=== PATIENT | male | born 1995 | race Caucasian/White ===

== ENCOUNTER 2016-07-08 00:14 | Inpatient (IN) | payer BC ==
[2016-07-08] MEDS ORDERED: ONDANSETRON HCL INJ/PF 4 MG/2 ML SDV IV ONE ×2 (00:44→02:38)
[2016-07-08] MEDS ORDERED: NORMAL SALINE 1000 ML 1,000 ML IV ONE ×3 (00:44→04:10)
[2016-07-08] MEDS ORDERED: ONDANSETRON 4 MG TAB.RAPDIS ONE (01:58)
--- NOTE | 2016-07-08 02:12 | ER Document Report ---
ED General - General Chief Complaint: Nausea/Vomiting Stated Complaint: NAUSEA, VOMITING Notes: Patient is a 20-year-old male presents with complaint of vomiting, cough, low- grade fever. Temperature at home was 99. He is a type I diabetic. He's been guessing how much insulin to give himself surrounded of his glucometer. He denies any diarrhea. No abdominal pain. Some pain in his chest when he coughs. Some pain in his throat from vomiting. No blood in his emesis. No other complaints at this time. TRAVEL OUTSIDE OF THE [place] IN LAST 30 DAYS: No - Related Data Allergies/Adverse Reactions: No Known Allergies Allergy (Unverified 02/12/14 13:50) Past Medical History - Social History Smoking Status: Former Smoker Chew tobacco use (# tins/day): No Frequency of alcohol use: Rare Drug Abuse: None Family History: Reviewed & Not Pertinent Patient has suicidal ideation: No Patient has homicidal ideation: No Endocrine Medical History: Reports: Hx Diabetes Mellitus Type 1, Hx Hypothyroidism Renal/ Medical History: Denies: Hx Peritoneal Dialysis - Immunizations Hx Pneumococcal Vaccination: 05/15/11 Review of Systems - Review of Systems Notes: My Normal Review Basic REVIEW OF SYSTEMS: CONSTITUTIONAL : Denies fever, chills, or sweats. Denies recent illness. EENT: Denies eye, ear, throat, or mouth pain or symptoms. Denies nasal or sinus congestion. CARDIOVASCULAR: Denies chest pain. RESPIRATORY: Recurrent cough GASTROINTESTINAL: Denies abdominal pain. Recurrent vomiting GENITOURINARY: Denies difficulty urinating, painful urination, burning, frequency, or blood in urine. MUSCULOSKELETAL: Denies neck or back pain or joint pain or swelling. SKIN: Denies rash or skin lesions. NEUROLOGICAL: Denies altered mental status or loss of consciousness. Denies headache. Denies weakness or paralysis or loss of use of either side. Denies problems with gait or speech. Denies sensory or motor loss. ALL OTHER SYSTEMS REVIEWED AND NEGATIVE. Physical Exam - Vital signs Vitals: Temp Pulse Resp BP Pulse Ox 98.3 F 148 H 20 120/85 96 07/08/16 00:18 07/08/16 00:18 07/08/16 00:18 07/08/16 00:18 07/08/16 00:18 - Notes Notes: General Appearance: Well nourished, alert, cooperative, no acute distress, no obvious discomfort. Vitals: reviewed, See vital signs table. Head: no swelling or tenderness to the head Eyes: PERRL, EOMI, Conjuctiva clear Mouth: No decreasd moisture Throat: No tonsillar inflammation, No airway obstruction, No lymphadenopathy Neck: Supple, no neck tenderness, No thyromegaly Lungs: No wheezing, No rales, No rhonci, No accessory muscle use, good air exchange bilaterally. Kusmal type respiration Heart: Cardiac rate, Regular rythm, No murmur, no rub Abdomen: Normal BS, soft, No rigidity, No abdominal tenderness, No guarding, no rebound, no abdominal masses, no organomegaly Extremities: strength 5/5 in all extremities, good pulses in all extremities, no swelling or tenderness in the extremities, no edema. Skin: warm, dry, appropriate color, no rash Neuro: speech clear, oriented x 3, normal affect, responds appropriately to questions. Course - Vital Signs Vital signs: Temp Pulse Resp BP Pulse Ox 98.3 F 148 H 20 120/85 96 07/08/16 00:18 07/08/16 00:18 07/08/16 00:18 07/08/16 00:18 07/08/16 00:18 - Laboratory Result Diagrams: 07/08/16 01:50 07/08/16 01:50 Laboratory results interpreted by me: 07/08/16 07/08/16 07/08/16 01:50 01:50 01:50 WBC 17.3 H MCHC 31.6 L RDW 14.2 H Seg Neutrophils % 83.6 H Lymphocytes % 7.0 L Absolute Neutrophils 14.5 H Absolute Monocytes 1.6 H VBG pH VBG pCO2 VBG HCO3 Sodium 135.8 L Potassium 6.2 H* Chloride 96 L Carbon Dioxide 6 L* Anion Gap 34 H Glucose 496 H* POC Glucose Calcium 10.3 H Total Protein 8.9 H Albumin 5.3 H Urine Protein 100 H Urine Glucose (UA) >=500 H Urine Ketones 80 H Urine Blood SMALL H 07/08/16 07/08/16 01:55 03:16 WBC MCHC RDW Seg Neutrophils % Lymphocytes % Absolute Neutrophils Absolute Monocytes VBG pH 7.04 L* VBG pCO2 22.3 L VBG HCO3 5.9 L Sodium Potassium Chloride Carbon Dioxide Anion Gap Glucose POC Glucose 443 H* Calcium Total Protein Albumin Urine Protein Urine Glucose (UA) Urine Ketones Urine Blood - EKG Interpretation by Me Additional EKG results interpreted by me: 07/08/16 02:12 EKGs reviewed and interpreted by me. EKG shows sinus tachycardia with rate of [address] segment elevation or depression. Ischemic T-wave inversions. MI level, QRS duration, QTC intervals are within normal range. Old EKG for comparison is from 02/12/2014. - Transfer of Care Notes: 07/08/16 03:44 Patient is in DKA as expected. I did reevaluate the patient. He is receiving IV fluids. Insulin drips being high now. He is hyperkalemic and acidotic. I will give him 1 amp of bicarbonate to help with the hyperkalemia. I have called the hospitalist and am awaiting a response to get the patient admitted. 07/08/16 04:09 I did speak with the hospitalist who agrees to the patient. 07/08/16 04:09 Dictation of this chart was performed using voice recognition software; therefore, there may be some unintended grammatical errors. Discharge - Discharge Clinical Impression: DKA (diabetic ketoacidoses) Qualifiers: Diabetes mellitus type: type 1 Diabetes mellitus complication detail: without coma Qualified Code(s): E10.10 - Type 1 diabetes mellitus with ketoacidosis without coma Condition: Stable Disposition: ADMITTED INPATIENT Admitting Provider: Hospitalist Unit Admitted: [facility]
[2016-07-08 02:14] LABS: ABSOLUTE LYMPHOCYTES (AUTO) 1.2 10^3/uL (0.5-4.7); ABSOLUTE MONOCYTES (AUTO) 1.6 10^3/uL (0.1-1.4); ABSOLUTE NEUT (AUTO) 14.5 10^3/uL (1.7-8.2); BASOPHILS % (AUTO) 0.2 % (0-2); HEMATOCRIT 50.3 % (37.9-51.0); HEMOGLOBIN 15.9 g/dL (13.5-17.0); HGB HCT DIFFERENCE -2.6; MEAN CORPUSCULAR HEMOGLOBIN 29.3 pg (27.0-33.4); MEAN CORPUSCULAR HGB CONC 31.6 g/dL (32.0-36.0); MEAN CORPUSCULAR VOLUME 93 fl (80-97); MONOCYTES % (AUTO) 9.2 % (3-13); RED BLOOD COUNT 5.43 10^6/uL (4.35-5.55); RED CELL DISTRIBUTION WIDTH 14.2 % (11.5-14.0); SEGMENTED NEUTROPHILS % (AUTO) 83.6 % (42-78); WHITE BLOOD COUNT 17.3 10^3/uL (4.0-10.5)
[2016-07-08 02:22] LABS: APPEARANCE,URINE CLEAR; BILIRUBIN,URINE NEGATIVE (NEGATIVE); GLUCOSE, URINE >=500 mg/dL (NEGATIVE); KETONES,URINE 80 mg/dL (NEGATIVE); LEUKOCYTE ESTERASE,URINE NEGATIVE (NEGATIVE); NITRITE,URINE NEGATIVE (NEGATIVE); PROTEIN,URINE 100 mg/dL (NEGATIVE); URINE SPECIFIC GRAVITY 1.021; UROBILINOGEN,URINE NEGATIVE mg/dL (<2.0)
[2016-07-08 02:24] LABS: ALANINE AMINOTRANSFERASE 34 U/L (21-72); ALBUMIN 5.3 g/dL (3.5-5.0); ALKALINE PHOSPHATASE 95 U/L (38-126); ASPARTATE AMINO TRANSFERASE 23 U/L (17-59); BILIRUBIN,TOTAL 0.7 mg/dL (0.2-1.3); BLOOD UREA NITROGEN 20 mg/dL (7-20); CALCIUM 10.3 mg/dL (8.4-10.2); CHLORIDE 96 mmol/L (98-107); CREATININE RESULT 1.12 mg/dL (0.52-1.25); SODIUM 135.8 mmol/L (137-145); TOTAL PROTEIN 8.9 g/dL (6.3-8.2)
[2016-07-08 02:51] LABS: ANION GAP 34 (5-19); GLUCOSE 496 mg/dL (75-110)
[2016-07-08 02:52] LABS: CARBON DIOXIDE 6 mmol/L (22-30); POTASSIUM 6.2 mmol/L (3.6-5.0)
[2016-07-08] MEDS ORDERED: DEXTROSE 40% GEL 15 GM TUBE PO PRN ×4 (03:25→05:09)
[2016-07-08] MEDS ORDERED: GLUCAGON,HUMAN RECOMB 1 MG INJ IM PRN ×2 (03:25→05:09)
[2016-07-08] MEDS ORDERED: NORMAL SALINE 100 ML with INSULIN REGULAR, HUMAN 100 UNIT IV PRN ×4 (03:25→05:09)
[2016-07-08] MEDS ORDERED: DEXTROSE 50%-WATER 25 GM/50 ML DISP.SYRIN IV PRN ×4 (03:25→05:09)
[2016-07-08] MEDS ORDERED: SODIUM BICARBONATE 8.4% INJ 50 MEQ/50 ML DISP.SYRIN IV ONE (03:43)
[2016-07-08 03:44] LABS: VENOUS BLOOD BASE EXCESS -23.2 mmol/L; VENOUS BLOOD HCO3 5.9 mmol/L (20-32); VENOUS BLOOD PCO2 22.3 mmHg (35-63)
[2016-07-08 03:48] LABS: VENOUS BLOOD PH 7.04 (7.30-7.42)
[2016-07-08] MEDS ORDERED: INSULIN REG, HUMAN 100 UNIT/ML 3 ML VIAL (PYX) ONE (03:56)
[2016-07-08] MEDS ORDERED: NORMAL SALINE 1000 ML 2,000 ML IV ONE (05:04)
[2016-07-08] MEDS ORDERED: ACETAMINOPHEN 325 MG TABLET PO PRN (05:10)
[2016-07-08] MEDS ORDERED: MAG HYDROX/AL HYDROX/SIMETH SUSP 30 ML UDCUP PO PRN (05:10)
[2016-07-08] MEDS ORDERED: MAGNESIUM HYDROXIDE SUSP 30 ML UDCUP PO PRN (05:10)
[2016-07-08] MEDS ORDERED: NORMAL SALINE 1000 ML 1,000 ML IV PRN (05:10)
[2016-07-08] MEDS ORDERED: PROMETHAZINE HCL INJ 25 MG/1 ML VIAL IV PRN (05:14)
[2016-07-08 05:24] LABS: BLOOD UREA NITROGEN 21 mg/dL (7-20); CHLORIDE 108 mmol/L (98-107); CREATINE KINASE 56 U/L (55-170); CREATININE RESULT 0.82 mg/dL (0.52-1.25); GLUCOSE 383 mg/dL (75-110); MAGNESIUM 1.7 mg/dL (1.6-2.3); POTASSIUM 5.5 mmol/L (3.6-5.0)
--- NOTE | 2016-07-08 05:27 | PDOC H&P ---
History of Present Illness Admission Date/PCP: 07/08/16 04:39 [facility] urgent care Dr. Bloom, endocrinology, [place] Patient complains of: Nausea and vomiting History of Present Illness: CELIA ACEVES is a 20 year old male with underlying type I diabetes mellitus, and hypothyroidism, with chronic noncompliance with medications, who presents to the emergency room for evaluation of a 2 to three- day history of dry cough, low-grade fever, with temperature at home of 99, nausea and vomiting, and several episodes of diarrhea. No abdominal pain. Mild chest discomfort only when he coughs. No hematemesis or coffee ground emesis. Lost his glucometer several days ago and has not replaced it. Has been trying to adjust his insulin without the aid of his glucometer. This is his third episode of diabetic ketoacidosis, with the first episode when he was initially diagnosed with diabetes mellitus. Has been off his Synthroid for the past 2-3 months, simply not having refilled the prescription. States he was diagnosed with influenza A yesterday in [facility]. Was not prescribed medication for same. Patient has been discussed with emergency room physician who evaluated the patient. . Laboratory results are listed in [facility] and are reviewed. X-ray summary results are listed below, with full report(s) reviewed. . EKG reviewed. 02/12/2014 Social history/personal habits: Single. Living girlfriend with a daughter. 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 No tobacco use for several weeks. Rare alcohol use. No illicit drug use. Allergies/adverse reactions NKDA. Home medications are reviewed by discussion with patient and are to be reconciled by nursing staff in [facility]. Home medications initially autopopulated into [facility] may not accurately reflect patient's true medications, dosages, and/or frequencies. REVIEW OF SYSTEMS: Constitutional: See history and present illness. Eyes: Wears glasses. ENT: No swallowing problems or complaints. No hearing problems or complaints. Pulmonary: See history and present illness. Cardiovascular: See history and present illness. Gastrointestinal: See history and present illness. Skin: No current complaints, including rashes. Hematologic: No unusual easy bruising or bleeding. Neurologic: No current complaints, including numbness or tingling. Musculoskeletal: No current complaints, including painful joints. Psychiatric: No current complaints, including anxiety or depression. Endocrine: Polydipsia and polyuria. Genitourinary: No current complaints, including dysuria. PHYSICAL EXAMINATION: 5 feet 10 inches tall. 58.6 kg. BMI 18.5 kg/m. Temperature 98.3. 98% saturation on room air. Pulse 1:30 and regular. 129/74. Thin otherwise well-developed young male appearing approximately his stated age. Pleasant awake alert and cooperative. No obvious distress other than perhaps mildly anxious. Appears to feel a bit under the weather, so to speak. Girlfriend is present at his side; patient approves. Skin is warm and dry. No grossly obvious evidence of rash in areas of skin examined. No subcutaneous nodules palpated. Tattoos. ENT: Hearing grossly normal to normal conversation. Tongue midline on protrusion pink and slightly tacky. Eyes: No scleral icterus. Pupils equal and reactive to light at 4 mm. [place] conjunctivae. Neck is supple and nontender to gentle active range of motion and palpation. Midline trachea. No palpable thyroid nodule mass enlargement or tenderness. Lymphatic: No palpable cervical or clavicular nodes. Neck and lymphatic exams limited by patient body habitus. Psychiatric: Fair insight into acute and chronic medical issues. Oriented to time location and why here. Lungs: Auscultation reveals clear and equal breath sounds bilaterally. No use of accessory respiratory muscles. Cardiovascular: Heart regular rate and rhythm, without gallop murmur or rub. No carotid or abdominal aortic bruits. No ankle or pedal edema. Faintly palpable dorsalis pedis pulses. Abdomen: soft, , nontender with positive bowel sounds. No upper abdominal mass or organomegaly palpated. Extremities: Feet are warm and dry. No calf tenderness to compression. No grossly obvious visual evidence of calf swelling. Gentle manipulation of lower extremities fails to reveal any obvious evidence of injury or instability to knees hips or ankles. Neurologic: Moves upper extremities grossly normally. Patellar reflexes absent. Absent Babinski. Light touch is intact at feet. Dorsiflexion and plantarflexion of feet 5 / 5 and symmetric. Past Medical History Cardiac Medical History: Denies: Congestive Heart Failure, DVT, Myocardial Infarction, Hyperlipidema, Hypertension, Pulmonary Embolism Pulmonary Medical History: Denies: Asthma, Chronic Obstructive Pulmonary Disease (COPD) EENT Medical History: Reports: Eyes - Glasses Denies: Ears, Throat Neurological Medical History: Denies: Hemorrhagic CVA, Ischemic CVA, Seizures Endocrine Medical History: Reports: Diabetes Mellitus Type 1, Hypothyroidism Denies: Diabetes Mellitus Type 2, Hyperthyroidism Renal/ Medical History: Reports: None GI Medical History: Denies: Cirrhosis, Gastroesophageal Reflux Disease, Hepatitis, Peptic Ulcer Disease Musculoskeltal Medical History: Denies: Arthritis Skin Medical History: Reports: None Psychiatric Medical History: Denies: Alcohol Dependency, Depression, General Anxiety Disorder, Substance Abuse, Tobacco Dependency Hematology: Reports: None Infectious Medical History: Denies: Hepatitis B, Hepatitis C Past Surgical History Past Surgical History: Reports: None Social History Information Source: Patient, Emergency Med Personnel, [facility] Records Lives with: Spouse/Significant other Smoking Status: Former Smoker Frequency of Alcohol Use: Occasional Hx Recreational Drug Use: No Drugs: None - Advance Directive Resuscitation Status: Full Code Surrogate healthcare decision maker:: Girlfriend Family History Family History: Reviewed & Not Pertinent Parental Family History Reviewed: Yes Children Family History Reviewed: Yes Sibling(s) Family History Reviewed.: Yes Medication/Allergy Home Medications: Insulin Aspart [Novolog Flexpen] PRN 07/08/16 Insulin Glargine,Hum.rec.anlog [Lantus Insulin 100 Unit/1 ml 10 ml] 30 unit SUBCUT QHS 07/08/16 Levothyroxine Sodium [Synthroid] 150 mcg PO DAILY 07/08/16 Allergies/Adverse Reactions: No Known Allergies Allergy (Unverified 02/12/14 13:50) Physical Exam Vital Signs: Temp Pulse Resp BP Pulse Ox 98.3 F 148 H 20 120/85 96 07/08/16 00:18 07/08/16 00:18 07/08/16 00:18 07/08/16 00:18 07/08/16 00:18 Results Impressions: Chest X-Ray 07/08/16 02:37 IMPRESSION: NO ACUTE RADIOGRAPHIC FINDING IN THE CHEST. Assessment & Plan - Diagnosis (1) DKA, type 1 Qualifiers: Diabetes mellitus complication detail: without coma Qualified Code(s ): E10.10 - Type 1 diabetes mellitus with ketoacidosis without coma Is this a current diagnosis for this admission?: YesPlan: Patient will be admitted under DKA protocol. Insulin drip. Vigorous fluid hydration. Strict intake and output. Q 4 hours chemistry 7. Hourly Accu- Cheks. Addition of dextrose to intravenous fluid once serum glucose and/or Accu- Cheks 275 or less. Patient is full code. I have strongly encouraged patient not to get out of bed without notifying staff , to avoid a fall with injury. Knee high SCDs for DVT prophylaxis, along with subcutaneous Lovenox. Impression and plans were discussed with patient and girlfriend both of whom concurs. Time spent in evaluation and management of patient: 65 (2) Influenza A Is this a current diagnosis for this admission?: YesPlan: Tamiflu. Droplet precautions. Will request lab results from [facility]. (3) Hypothyroidism Qualifiers: Hypothyroidism type: unspecified Qualified Code(s): E03.9 - Hypothyroidism, unspecified Is this a current diagnosis for this admission?: YesPlan: Resume home medications as appropriate once these have been determined and reviewed. (4) Noncompliance with medication regimen Is this a current diagnosis for this admission?: Yes - Inpatient Certification Based on my medical assessment, after consideration of the patient's comorbidities, presenting symptoms, or acuity I expect that the services needed warrant INPATIENT care.: Yes I certify that my determination is in accordance with my understanding of Medicare's requirements for reasonable and necessary INPATIENT services [42 CFR 412.3e].: Yes Medical Necessity: Need Close Monitoring Due to Risk of Patient Decompensation, Need For IV Fluids, Need For Continuous Telemetry Monitoring, Risk of Complication if Not Cared For in Hospital, Risk of Diagnosis Which Will Require Inpatient Eval/Care/Monitoring Post Hospital Care: D/C or Transfer Summary
[2016-07-08 05:43] LABS: CREATINE KINASE MB 0.76 ng/mL (<4.55)
[2016-07-08 05:44] LABS: TROPONIN I < 0.012 ng/mL
[2016-07-08 05:58] LABS: CARBON DIOXIDE < 5 mmol/L (22-30)
[2016-07-08] MEDS: OSELTAMIVIR PHOSPHATE 75 MG CAPSULE PO SCH ×2 (06:03→17:47)
[2016-07-08] MEDS ORDERED: NORMAL SALINE 1000 ML 2,000 ML IV PRN (06:19)
[2016-07-08 06:35] LABS: ARTERIAL BLOOD O2 SATURATION 84.6 % (94-98)
[2016-07-08] MEDS ORDERED: GUAIFENESIN/CODEINE PHOS 100-10 MG/ 5 ML UDC PO PRN (08:08)
[2016-07-08 08:52] LABS: URINE BARBITURATES SCREEN NEGATIVE; URINE METHADONE SCREEN NEGATIVE; URINE OPIATES LOW NEGATIVE; URINE PHENCYCLIDINE SCREEN NEGATIVE
[2016-07-08 10:40] LABS: ANION GAP 13 (5-19); BLOOD UREA NITROGEN 15 mg/dL (7-20); CALCIUM 7.1 mg/dL (8.4-10.2); CARBON DIOXIDE 11 mmol/L (22-30); CHLORIDE 115 mmol/L (98-107); CREATININE RESULT 0.64 mg/dL (0.52-1.25); GLUCOSE 133 mg/dL (75-110); SODIUM 138.5 mmol/L (137-145)
[2016-07-08 10:49] LABS: POTASSIUM 4.2 mmol/L (3.6-5.0)
[2016-07-08] MEDS: LEVOTHYROXINE SODIUM 0.15 MG TABLET PO SCH (11:00)
[2016-07-08] MEDS: DEXTROSE 5%-1/2 NORMAL SALINE 1,000 ML IV PRN ×3 (11:02→15:43)
[2016-07-08] MEDS: ENOXAPARIN SODIUM INJ 40 MG/0.4 ML DISP.SYRIN SUBCUT SCH (12:42)
[2016-07-08] MEDS ORDERED: INSULIN GLARGINE,HUM.REC.ANLOG 1,000 UNIT/10 ML UNIT SUBCUT ONE (13:00)
[2016-07-08] MEDS ORDERED: ONDANSETRON HCL INJ/PF 4 MG/2 ML SDV ONE (14:32)
[2016-07-08 15:09] LABS: ANION GAP 13 (5-19); BLOOD UREA NITROGEN 13 mg/dL (7-20); CALCIUM 7.7 mg/dL (8.4-10.2); CARBON DIOXIDE 15 mmol/L (22-30); CHLORIDE 108 mmol/L (98-107); CREATININE RESULT 0.66 mg/dL (0.52-1.25); GLUCOSE 109 mg/dL (75-110); POTASSIUM 3.5 mmol/L (3.6-5.0); SODIUM 135.8 mmol/L (137-145)
--- NOTE | 2016-07-08 16:55 | EKG REPORT ---
SEVERITY:- ABNORMAL ECG - SINUS TACHYCARDIA CUONG, CONSIDER BIATRIAL ABNORMALITIES : Confirmed by: Sirisha Mohan MD 08-Jul-2016 16:55:08
--- NOTE | 2016-07-08 16:56 | PDOC PROGRESS REPORT ---
Subjective Progress Note for:: 07/08/16 Subjective:: The patient was seen earlier today on rounds. The patient was still in the emergency room awaiting to go to the floor. The patient states his symptoms have improved in comparison to when he came in. The patient has had no vomiting. Does admit to nausea and cough. Still tachycardic when rounding. The patient was awake and alert. The patient states that he takes 30 units of Lantus at night and is aware that his A1c is in double digits but states it's better than it has been. Physical Exam Vital Signs: Temp Pulse Resp BP Pulse Ox 101.3 F H 124 H 16 130/74 H 91 L 07/08/16 15:03 07/08/16 15:03 07/08/16 15:03 07/08/16 15:03 07/08/16 15:38 General appearance: PRESENT: no acute distress, well-developed, well-nourished Head exam: PRESENT: atraumatic, normocephalic Eye exam: PRESENT: conjunctiva pink, EOMI, PERRLA. ABSENT: scleral icterus Ear exam: PRESENT: normal external ear exam Mouth exam: PRESENT: moist, tongue midline Neck exam: ABSENT: carotid bruit, JVD, lymphadenopathy, thyromegaly Respiratory exam: PRESENT: clear to auscultation derrick, symmetrical, unlabored. ABSENT: rales, rhonchi, tachypnea, wheezes Cardiovascular exam: PRESENT: RRR, tachycardia. ABSENT: diastolic murmur, rubs , systolic murmur Pulses: PRESENT: normal dorsalis pedis pul Vascular exam: PRESENT: normal capillary refill GI/Abdominal exam: PRESENT: normal bowel sounds, soft. ABSENT: distended, guarding, mass, organolmegaly, rebound, tenderness Rectal exam: PRESENT: deferred Extremities exam: PRESENT: full ROM. ABSENT: calf tenderness, clubbing, pedal edema Neurological exam: PRESENT: alert, awake, oriented to person, oriented to place , oriented to time, oriented to situation, CN II-XII grossly intact. ABSENT: motor sensory deficit Psychiatric exam: PRESENT: appropriate affect, normal mood. ABSENT: homicidal ideation, suicidal ideation Skin exam: PRESENT: dry, intact, warm. ABSENT: cyanosis, rash Results Laboratory Results: 07/08/16 14:13 07/08/16 07/08/1617 06:25 09:52 14:13 Carbonic Acid 0.53 L HCO3/H2CO3 Ratio 12:1 ABG pH 7.20 L* ABG pCO2 17.5 L* ABG pO2 57.8 L ABG HCO3 6.7 L ABG O2 Saturation 84.6 L ABG Base Excess -19.0 FiO2 ROOM AIR Sodium 138.5 135.8 L Potassium 4.2 D 3.5 L Chloride 115 H 108 H Carbon Dioxide 11 L 15 L Anion Gap 13 13 BUN 15 13 Creatinine 0.64 0.66 Est GFR ( Amer) > 60 > 60 Est GFR (Non-Af Amer) > 60 > 60 Glucose 133 H 109 Calcium 7.1 L 7.7 L Impressions: Chest X-Ray 07/08/16 02:37 IMPRESSION: NO ACUTE RADIOGRAPHIC FINDING IN THE CHEST. Assessment & Plan - Diagnosis (1) DKA (diabetic ketoacidoses) Qualifiers: Diabetes mellitus type: type 1 Diabetes mellitus complication detail: without coma Qualified Code(s): E10.10 - Type 1 diabetes mellitus with ketoacidosis without coma Is this a current diagnosis for this admission?: YesPlan: Will continue chemistries every 4 hours. Once the patient's gap closes will transition to basal dose insulin and advance diet. Sugars are much improved. When below 250 will transition to D5 and a half. (2) Influenza A Is this a current diagnosis for this admission?: YesPlan: No evidence of pneumonia patient is not febrile will continue to monitor. (3) Diabetes mellitus type 1 Qualifiers: Diabetes mellitus complication status: with hyperglycemia Qualified Code(s): E10.65 - Type 1 diabetes mellitus with hyperglycemia Is this a current diagnosis for this admission?: YesPlan: Basal dose of Lantus is 30 units at bedtime with NovoLog sliding scale coverage according to carb count (4) Hypothyroidism Qualifiers: Hypothyroidism type: unspecified Qualified Code(s): E03.9 - Hypothyroidism, unspecified Is this a current diagnosis for this admission?: YesPlan: Will continue home medications. (5) Noncompliance with medication regimen Is this a current diagnosis for this admission?: Yes - Time Time Spent with patient: 35 or more minutes Medications reviewed and adjusted accordingly: Yes Anticipated discharge: Home Within: within 24 hours
[2016-07-08] MEDS: POTASSI CL 20 MEQ/D5-1/2NS 1L 1,000 ML IV PRN (17:46)
[2016-07-08 19:18] LABS: ANION GAP 13 (5-19); BLOOD UREA NITROGEN 11 mg/dL (7-20); CALCIUM 7.9 mg/dL (8.4-10.2); CARBON DIOXIDE 14 mmol/L (22-30); CHLORIDE 105 mmol/L (98-107); CREATININE RESULT 0.62 mg/dL (0.52-1.25); GLUCOSE 147 mg/dL (75-110); SODIUM 131.9 mmol/L (137-145)
[2016-07-08 20:05] LABS: ADD ON TESTING BLD IN LAB ACKNOWLEDGE
[2016-07-08 20:20] LABS: MAGNESIUM 1.3 mg/dL (1.6-2.3)
[2016-07-08] MEDS: POTASSI CL 20 MEQ/50 ML RIDER 20 MEQ/50 ML RTUPB IV SCH ×2 (21:04→23:13)
[2016-07-08] MEDS ORDERED: INSULIN GLARGINE,HUM.REC.ANLOG 300 UNIT/3 ML INSULN.PEN SUBCUT SCH (22:00)
[2016-07-08] MEDS: MAGNESIUM SULFATE/D5W 1 GM/100 ML RTUPB IV SCH ×2 (22:09→23:13)
[2016-07-08 22:52] LABS: ANION GAP 11 (5-19); BLOOD UREA NITROGEN 10 mg/dL (7-20); CALCIUM 8.4 mg/dL (8.4-10.2); CARBON DIOXIDE 17 mmol/L (22-30); CHLORIDE 107 mmol/L (98-107); GLUCOSE 152 mg/dL (75-110); POTASSIUM 3.5 mmol/L (3.6-5.0); SODIUM 135.1 mmol/L (137-145)
[2016-07-09] MEDS: POTASSI CL 20 MEQ/50 ML RIDER 20 MEQ/50 ML RTUPB IV SCH (01:01)
[2016-07-09] MEDS: MAGNESIUM SULFATE/D5W 1 GM/100 ML RTUPB IV SCH (01:04)
[2016-07-09 03:20] LABS: ANION GAP 10 (5-19); BLOOD UREA NITROGEN 7 mg/dL (7-20); CALCIUM 7.7 mg/dL (8.4-10.2); CARBON DIOXIDE 17 mmol/L (22-30); CHLORIDE 107 mmol/L (98-107); CREATININE RESULT 0.55 mg/dL (0.52-1.25); GLUCOSE 149 mg/dL (75-110); POTASSIUM 3.7 mmol/L (3.6-5.0); SODIUM 133.5 mmol/L (137-145)
[2016-07-09] MEDS: POTASSI CL 20 MEQ/D5-1/2NS 1L 1,000 ML IV PRN (05:32)
[2016-07-09 06:09] LABS: ABSOLUTE LYMPHOCYTES (AUTO) 1.4 10^3/uL (0.5-4.7); ABSOLUTE MONOCYTES (AUTO) 0.8 10^3/uL (0.1-1.4); ABSOLUTE NEUT (AUTO) 5.9 10^3/uL (1.7-8.2); BASOPHILS % (AUTO) 0.3 % (0-2); EOSINOPHILS % (AUTO) 0.1 % (0-6); HEMATOCRIT 35.7 % (37.9-51.0); HGB HCT DIFFERENCE 1.2; LYMPHOCYTES % (AUTO) 17.8 % (13-45); MEAN CORPUSCULAR HEMOGLOBIN 29.2 pg (27.0-33.4); MEAN CORPUSCULAR HGB CONC 34.5 g/dL (32.0-36.0); MONOCYTES % (AUTO) 9.2 % (3-13); RED BLOOD COUNT 4.22 10^6/uL (4.35-5.55); RED CELL DISTRIBUTION WIDTH 13.2 % (11.5-14.0); SEGMENTED NEUTROPHILS % (AUTO) 72.6 % (42-78); WHITE BLOOD COUNT 8.1 10^3/uL (4.0-10.5)
[2016-07-09 06:31] LABS: HEMOGLOBIN 12.3 g/dL (13.5-17.0); MEAN CORPUSCULAR VOLUME 85 fl (80-97)
[2016-07-09 06:40] LABS: ANION GAP 7 (5-19); BLOOD UREA NITROGEN 6 mg/dL (7-20); CALCIUM 7.8 mg/dL (8.4-10.2); CARBON DIOXIDE 19 mmol/L (22-30); CHLORIDE 107 mmol/L (98-107); CREATININE RESULT 0.52 mg/dL (0.52-1.25); GLUCOSE 139 mg/dL (75-110); MAGNESIUM 1.8 mg/dL (1.6-2.3); POTASSIUM 3.3 mmol/L (3.6-5.0); SODIUM 133.3 mmol/L (137-145)
[2016-07-09] MEDS: ENOXAPARIN SODIUM INJ 40 MG/0.4 ML DISP.SYRIN SUBCUT SCH (10:25)
[2016-07-09] MEDS: OSELTAMIVIR PHOSPHATE 75 MG CAPSULE PO SCH (10:25)
[2016-07-09] MEDS: LEVOTHYROXINE SODIUM 0.15 MG TABLET PO SCH (10:25)
[2016-07-09 10:53] LABS: ANION GAP 9 (5-19); BLOOD UREA NITROGEN 5 mg/dL (7-20); CALCIUM 7.9 mg/dL (8.4-10.2); CARBON DIOXIDE 21 mmol/L (22-30); CHLORIDE 103 mmol/L (98-107); CREATININE RESULT 0.61 mg/dL (0.52-1.25); GLUCOSE 209 mg/dL (75-110); POTASSIUM 3.5 mmol/L (3.6-5.0); SODIUM 133.1 mmol/L (137-145)
[2016-07-09 12:10] VITALS: BP 117/71
[2016-07-09] MEDS ORDERED: INSULIN GLARGINE,HUM.REC.ANLOG 300 UNIT/3 ML INSULN.PEN SUBCUT ONE (12:22)
--- NOTE | 2016-07-09 16:14 | PDOC DISCHARGE SUMMARY ---
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 Trevin Bloom Discharge Date: 07/09/16 - Discharge Diagnosis (1) DKA (diabetic ketoacidoses) Is this a current diagnosis for this admission?: Yes (2) Influenza A Is this a current diagnosis for this admission?: Yes (3) Diabetes mellitus type 1 Is this a current diagnosis for this admission?: Yes (4) Hypothyroidism Is this a current diagnosis for this admission?: Yes (5) Noncompliance with medication regimen Is this a current diagnosis for this admission?: Yes - Additional Information Resuscitation Status: Full Code Discharge Diet: As Tolerated, Diabetic Discharge Activity: Activity As Tolerated Home Medications: Insulin Aspart [Novolog Flexpen] 0 units SQ .PERSLIDINGSCALE 07/08/16 Insulin Aspart [Novolog Flexpen] 10 units SQ TID 07/08/16 Insulin Glargine,Hum.rec.anlog [Lantus Solostar] 30 units SQ DAILY 07/08/16 Levothyroxine Sodium [Synthroid 0.15 mg Tablet] 150 mcg PO DAILY 07/08/16 History of Present Illness Patient complains of: Nausea vomiting History of Present Illness: CELIA ACEVES is a 20 year old male with underlying type I diabetes mellitus, and hypothyroidism, with chronic noncompliance with medications, who presents to the emergency room for evaluation of a 2 to three- day history of dry cough, low-grade fever, with temperature at home of 99, nausea and vomiting, and several episodes of diarrhea. No abdominal pain. Mild chest discomfort only when he coughs. No hematemesis or coffee ground emesis. . This is his third episode of diabetic ketoacidosis, with the first episode when he was initially diagnosed with diabetes mellitus. Has been off his Synthroid for the past 2-3 months, simply not having refilled the prescription. States he was diagnosed with influenza A yesterday in [facility] urgent care. Was not prescribed medication for same. Hospital Course Hospital Course: The patient was admitted to [facility]. Diabetic ketoacidosis protocol was utilized including an insulin drip, every hourly blood glucose checks, venous blood gases , and aggressive hydration. Patient was severely acidotic but was able to maintain airway. Electrolytes were corrected accordingly. Potassium normalized with hydration. The patient was transitioned to a basal dose of insulin and drip was discontinued. Patient was able to tolerate meals without issue and is ready for discharge. The patient has had resolution of his influenza symptoms. 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 Physical Exam Vital Signs: Temp Pulse Resp BP Pulse Ox 99.2 F 111 H 16 117/71 99 07/09/16 12:36 07/09/16 12:36 07/09/16 12:36 07/09/16 11:05 07/09/16 12:36 Intake & Output 07/07/16 07/08/16 07/09/16 23:59 23:59 23:59 Intake Total 413 2540 Output Total 850 2200 Balance -437 340 Weight 70.6 kg General appearance: PRESENT: no acute distress, well-developed, well-nourished Head exam: PRESENT: atraumatic, normocephalic Eye exam: PRESENT: conjunctiva pink, EOMI, PERRLA. ABSENT: scleral icterus Ear exam: PRESENT: normal external ear exam Mouth exam: PRESENT: moist, tongue midline Neck exam: ABSENT: carotid bruit, JVD, lymphadenopathy, thyromegaly Respiratory exam: PRESENT: clear to auscultation derrick, symmetrical, unlabored. ABSENT: rales, rhonchi, tachypnea, wheezes Cardiovascular exam: PRESENT: RRR, tachycardia. ABSENT: diastolic murmur, rubs , systolic murmur Pulses: PRESENT: normal dorsalis pedis pul Vascular exam: PRESENT: normal capillary refill GI/Abdominal exam: PRESENT: normal bowel sounds, soft. ABSENT: distended, guarding, mass, organolmegaly, rebound, tenderness Rectal exam: PRESENT: deferred Extremities exam: PRESENT: full ROM. ABSENT: calf tenderness, clubbing, pedal edema Neurological exam: PRESENT: alert, awake, oriented to person, oriented to place , oriented to time, oriented to situation, CN II-XII grossly intact. ABSENT: motor sensory deficit Psychiatric exam: PRESENT: appropriate affect, normal mood. ABSENT: homicidal ideation, suicidal ideation Skin exam: PRESENT: dry, intact, warm. ABSENT: cyanosis, rash Results Laboratory Results: Labs- Last Values WBC 8.1 10^3/uL (4.0-10.5) 07/09/16 05:53 RBC 4.22 10^6/uL (4.35-5.55) L 02/25/17 05:53 Hgb 12.3 g/dL (13.5-17.0) L D 07/09/16 05:53 Hct 35.7 % (37.9-51.0) L 07/09/16 05:53 MCV 85 fl (80-97) D 07/09/16 05:53 MCH 29.2 pg (27.0-33.4) 07/09/16 05:53 MCHC 34.5 g/dL (32.0-36.0) 07/09/16 05:53 RDW 13.2 % (11.5-14.0) 07/09/16 05:53 Plt Count 136 10^3/uL (150-450) L 07/09/16 05:53 Seg Neutrophils % 72.6 % (42-78) 07/09/16 05:53 Lymphocytes % 17.8 % (13-45) 07/09/16 05:53 Monocytes % 9.2 % (3-13) 07/09/16 05:53 Eosinophils % 0.1 % (0-6) 07/09/16 05:53 Basophils % 0.3 % (0-2) 07/09/16 05:53 Absolute Neutrophils 5.9 10^3/uL (1.7-8.2) 07/09/16 05:53 Absolute Lymphocytes 1.4 10^3/uL (0.5-4.7) 07/09/16 05:53 Absolute Monocytes 0.8 10^3/uL (0.1-1.4) 07/09/16 05:53 Absolute Eosinophils 0.0 10^3/uL (0.0-0.6) 07/09/16 05:53 Absolute Basophils 0.0 10^3/uL (0.0-0.2) 07/09/16 05:53 Carbonic Acid 0.53 mmol/L (1.05-1.35) L 07/08/16 06:25 HCO3/H2CO3 Ratio 12:1 07/08/16 06:25 ABG pH 7.20 (7.35-7.45) L* 07/08/16 06:25 ABG pCO2 17.5 mmHg (35-45) L* 07/08/16 06:25 ABG pO2 57.8 mmHg (80-100) L 07/08/16 06:25 ABG HCO3 6.7 mmol/L (20-26) L 07/08/16 06:25 ABG Total CO2 7.2 mmol/L (23-27) L 07/08/16 06:25 ABG O2 Saturation 84.6 % (94-98) L 07/08/16 06:25 ABG Base Excess -19.0 mmol/L 07/08/16 06:25 VBG pH 7.04 (7.30-7.42) L* 07/08/16 03:16 VBG pCO2 22.3 mmHg (35-63) L 07/08/16 03:16 VBG HCO3 5.9 mmol/L (20-32) L 07/08/16 03:16 VBG Base Excess -23.2 mmol/L 07/08/16 03:16 FiO2 ROOM AIR 07/08/16 06:25 Sodium 133.1 mmol/L (137-145) L 07/09/16 10:07 Potassium 3.5 mmol/L (3.6-5.0) L 07/09/16 10:07 Chloride 103 mmol/L (98-107) 07/09/16 10:07 Carbon Dioxide 21 mmol/L (22-30) L 07/09/16 10:07 Anion Gap 9 (5-19) 07/09/16 10:07 BUN 5 mg/dL (7-20) L 07/09/16 10:07 Creatinine 0.61 mg/dL (0.52-1.25) 07/09/16 10:07 Est GFR ( Amer) > 60 (>60) 07/09/16 10:07 Est GFR (Non-Af Amer) > 60 (>60) 07/09/16 10:07 Glucose 209 mg/dL (75-110) H 07/09/16 10:07 POC Glucose 194 mg/dL (70-110) H 07/09/16 11:06 Hemoglobin A1c % 12.9 % (4.7-6.0) H 07/08/16 04:55 Calcium 7.9 mg/dL (8.4-10.2) L 07/09/16 10:07 Magnesium 1.8 mg/dL (1.6-2.3) 07/09/16 05:33 Total Bilirubin 0.7 mg/dL (0.2-1.3) 07/08/16 01:50 Direct Bilirubin 0.0 mg/dL (0.0-0.3) 07/08/16 01:50 AST 23 U/L (17-59) 07/08/16 01:50 ALT 34 U/L (21-72) 07/08/16 01:50 Alkaline Phosphatase 95 U/L (38-126) 07/08/16 01:50 Creatine Kinase 56 U/L (55-170) 07/08/16 04:55 CK-MB (CK-2) 0.76 ng/mL (<4.55) 07/08/16 04:55 Troponin I < 0.012 ng/mL 07/08/16 04:55 Total Protein 8.9 g/dL (6.3-8.2) H 07/08/16 01:50 Albumin 5.3 g/dL (3.5-5.0) H 07/08/16 01:50 Urine Color STRAW 07/08/16 01:50 Urine Appearance CLEAR 07/08/16 01:50 Urine pH 5.0 (5.0-9.0) 07/08/16 01:50 Ur Specific [place] 1.021 07/08/16 01:50 Urine Protein 100 mg/dL (NEGATIVE) H 07/08/16 01:50 Urine Glucose (UA) >=500 mg/dL (NEGATIVE) H 07/08/16 01:50 Urine Ketones 80 mg/dL (NEGATIVE) H 07/08/16 01:50 Urine Blood SMALL (NEGATIVE) H 07/08/16 01:50 Urine Nitrite NEGATIVE (NEGATIVE) 07/08/16 01:50 Urine Bilirubin NEGATIVE (NEGATIVE) 07/08/16 01:50 Urine Urobilinogen NEGATIVE mg/dL (<2.0) 07/08/16 01:50 Ur Leukocyte Esterase NEGATIVE (NEGATIVE) 07/08/16 01:50 Urine WBC (Auto) 0 /HPF 07/08/16 01:50 Urine RBC (Auto) 0 /HPF 07/08/16 01:50 U Hyaline Cast (Auto) 2 /LPF 07/08/16 01:50 Squamous Epi Cells Auto <1 /HPF 07/08/16 01:50 Urine Ascorbic Acid NEGATIVE (NEGATIVE) 07/08/16 01:50 Urine Opiates Screen NEGATIVE 07/08/16 01:50 Urine Methadone Screen NEGATIVE 07/08/16 01:50 Ur Barbiturates Screen NEGATIVE 07/08/16 01:50 Ur Phencyclidine Scrn NEGATIVE 07/08/16 01:50 Ur Amphetamines Screen NEGATIVE 07/08/16 01:50 U Benzodiazepines Scrn NEGATIVE 07/08/16 01:50 Urine Cocaine Screen NEGATIVE 07/08/16 01:50 U Marijuana (THC) Screen NEGATIVE 07/08/16 01:50 Impressions: Chest X-Ray 07/08/16 02:37 IMPRESSION: NO ACUTE RADIOGRAPHIC FINDING IN THE CHEST. Qualifiers PATEINT BEING DISCHARGED WITH ANY OF THE FOLLOWING DIAGNOSIS?: No Plan Time Spent: Less than 30 Minutes
[2016-07-09] MEDS ORDERED: INSULIN GLARGINE,HUM.REC.ANLOG 300 UNIT/3 ML INSULN.PEN SUBCUT SCH (22:00)
== END 2016-07-09 12:55 | disposition home or self-care (01) | DRG 639 ==
LOC: ER 00:14 → UNDOADMIN 04:39 → EH 04:39 → 3W 14:52
PROVIDERS: ADMIT Family Medicine; ATTEND Family Medicine
DX: E10.10 Type 1 diabetes mellitus with ketoacidosis without coma (principal); J09.X2 Influenza due to identified novel influenza A virus with other respiratory manifestations; E03.9 Hypothyroidism, unspecified; Z91.14 Patient's other noncompliance with medication regimen; Z79.4 Long term (current) use of insulin; Z87.891 Personal history of nicotine dependence; Z79.899 Other long term (current) drug therapy
CPT/HCPCS: 36415; 36600; 71010; 80048; 80053; 80307; 81001; 82550; 82553; 82803; 82962; 83036; 83735; 84484; 85025; 93005; 93010; 96361; 96374; 96375; 99285; J1650; J1815; J2405; J2550; J3475; J3480; J3490; J7030